=== PATIENT | male | born 1955 | race Caucasian/White ===

== ENCOUNTER 2018-07-21 10:15 | Outpatient (REF) | payer BC, SELFPAY ==
[2018-07-21 20:53] LABS: Anion Gap 7.9 mmol/L (3-11); BUN 20 mg/dL (7-18); CO2 29.1 mmol/L (21.0-32.0); CREATININE 0.85 mg/dL (0.70-1.30); Calcium 8.8 mg/dL (8.5-10.1); Calculated LDL 123; Chloride 103 mmol/L (98-107); Cholesterol 197 mg/dL (50-200); Glucose 94 mg/dL (70-100); HDL Cholesterol 64 mg/dL (40-60); Potassium 4.6 mmol/L (3.5-5.1); Sodium 140 mmol/L (136-145); Triglyceride 54 mg/dL (30-150)
[2018-07-25 09:36] LABS: PSA, Screening 4.5 ng/ml (0-4.5)
== END 2018-07-21 10:35 ==
LOC: NCHCN 10:15
PROVIDERS: PCP Internal Medicine; Visit Provider Internal Medicine
DX: Z13.220 Encounter for screening for lipoid disorders (principal); Z13.1 Encounter for screening for diabetes mellitus; Z12.5 Encounter for screening for malignant neoplasm of prostate
CPT/HCPCS: 80048; 80061; 83721; 84153

== ENCOUNTER 2019-03-30 16:42 | Outpatient (REF) | payer BC, SELFPAY ==
[2019-03-30 21:09] LABS: Abs Immature Grans 0.02 k/cumm (0.0-0.09); Absolute Basophil Count 0.02 k/cumm (0.0-0.2); Absolute Eosinophil Count 0.22 k/cumm (0.0-0.7); Absolute Lymphocyte Count 2.34 k/cumm (1.2-3.4); Absolute Monocyte Count 0.51 k/cumm (0.11-0.7); Absolute Neutrophil Count 3.16 k/cumm (1.2-6.7); Basophils % 0.3; Eosinophils % 3.5; HCT 45.4 % (40.0-50.0); Immature Grans % 0.3 %; Lymphocytes % 37.3; Mean Corpuscular Hemoglobin 30.1 pg (27.0-33.0); Mean Corpuscular Volume 91.2 fL (80-95); Mean Platelet Volume 10.8 fL (8.0-11.0); Monocytes % 8.1; Neutrophils % 50.5; Platelet Count 207 x1000/uL (130-400); RBC 4.98 m/cumm (4.50-6.00); White Blood Cell Count 6.27 k/cumm (4.4-10.8)
[2019-03-30 21:36] LABS: ALT 33 U/L (16-63); AST 19 U/L (15-37); Albumin 3.9 g/dL (3.4-5.0); Alkaline Phosphatase 96 U/L (46-116); Anion Gap 6.7 mmol/L (3-11); BUN 20 mg/dL (7-18); Bilirubin, Total 0.5 mg/dL (0.2-1.0); CO2 29.3 mmol/L (21.0-32.0); CREATININE 0.81 mg/dL (0.70-1.30); Calcium 8.7 mg/dL (8.5-10.1); Chloride 104 mmol/L (98-107); Glucose 91 mg/dL (74-106); Potassium 4.3 mmol/L (3.5-5.1); Sodium 140 mmol/L (136-145); TSH 1.18 uIU/mL (0.36-3.74); Total Protein 7.1 g/dL (6.4-8.2)
[2019-03-30 21:48] LABS: C-Reactive Protein 0.11 mg/dL (0.0-0.3)
== END 2019-03-30 17:02 ==
LOC: NCHCN 16:42
PROVIDERS: PCP Internal Medicine; Visit Provider Internal Medicine
DX: R42 Dizziness and giddiness (principal); M79.643 Pain in unspecified hand
CPT/HCPCS: 80053; 84443; 85025; 86140

== ENCOUNTER 2020-03-27 13:21 | Outpatient (REF) | payer BC, SELFPAY ==
[2020-03-27 13:36] LABS: Abs Immature Grans 0.02 10^3/uL (0.0-0.06); Absolute Basophil Count 0.03 10^3/uL (0.0-0.2); Absolute Eosinophil Count 0.14 10^3/uL (0.0-0.7); Absolute Monocyte Count 0.49 10^3/uL (0.1-0.8); Absolute Neutrophil Count 3.67 10^3/uL (1.2-6.7); Basophils % 0.5; Eosinophils % 2.4; HCT 49.8 % (40.0-50.0); HGB 16.1 g/dL (13.5-17.5); Immature Grans % 0.3; Lymphocytes % 26.9; MCH 30.1 pg (27.0-33.0); MCHC 32.3 % (32.0-36.0); MCV 93.3 fL (80-95); MPV 10.6 fL (8.0-11.0); Monocytes % 8.2; Neutrophils % 61.7; Nucleated RBC 0 %; Platelet Count 222 10^3/uL (130-400); RBC 5.34 10^6/uL (4.36-5.78); RDW 12.4 % (11.8-14.1); RDW-SD 42.8 fL; WBC 5.95 10^3/uL (4.4-10.8)
[2020-03-27 14:30] LABS: BUN 16 mg/dL (7-18); CREATININE 0.6 mg/dL (0.70-1.30); Calcium 8.8 mg/dL (8.5-10.1); Calculated LDL 120 mg/dL (<100); Chloride 103 mmol/L (98-107); Cholesterol 193 mg/dL (<200); Glucose 98 mg/dL (74-106); HDL Cholesterol 58 mg/dL (40-60); Potassium 4.7 mmol/L (3.5-5.1); Sodium 139 mmol/L (136-145); TSH 0.96 uIU/mL (0.36-3.74); Triglyceride 76 mg/dL (<150)
== END 2020-03-27 13:22 | disposition home or self-care (01) ==
LOC: NCHCN 13:21
PROVIDERS: PCP Internal Medicine; Visit Provider Internal Medicine
DX: I10 Essential (primary) hypertension (principal); R68.89 Other general symptoms and signs; Z13.220 Encounter for screening for lipoid disorders
CPT/HCPCS: 80048; 80061; 84443; 85025

== ENCOUNTER 2020-11-16 15:50 | Outpatient (REF) | payer BC, SELFPAY ==
[2020-11-18 10:29] LABS: PSA, Screening 1.8 ng/mL (0.0-4.5)
== END 2020-11-16 15:51 | disposition home or self-care (01) ==
LOC: NCHCN 15:50
PROVIDERS: PCP Internal Medicine; Visit Provider Internal Medicine
DX: Z12.5 Encounter for screening for malignant neoplasm of prostate (principal); J45.30 Mild persistent asthma, uncomplicated; Z78.9 Other specified health status
CPT/HCPCS: 84153

== ENCOUNTER 2021-12-11 16:23 | Outpatient (REF) | payer BC, SELFPAY ==
[2021-12-11 15:23] LABS: Anion Gap 4.4 mmol/L (3-11); BUN 22 mg/dL (7-18); CO2 30.6 mmol/L (21.0-32.0); CREATININE 0.9 mg/dL (0.70-1.30); Calcium 8.6 mg/dL (8.5-10.1); Calculated LDL 110 mg/dL (<100); Chloride 106 mmol/L (98-107); Cholesterol 178 mg/dL (<200); Estimated GFR 95.37 (mL/min/1.73m2); Glucose 102 mg/dL (74-106); HDL Cholesterol 55 mg/dL (40-60); Potassium 4.4 mmol/L (3.5-5.1); Sodium 141 mmol/L (136-145); Triglyceride 66 mg/dL (<150)
[2021-12-11 22:29] LABS: PSA, Screening 3.6 ng/mL (<=4.5)
== END 2021-12-11 16:24 | disposition home or self-care (01) ==
LOC: NCHCN 16:23
PROVIDERS: PCP Internal Medicine; Visit Provider Internal Medicine
DX: E78.5 Hyperlipidemia, unspecified (principal); N40.0 Benign prostatic hyperplasia without lower urinary tract symptoms; R97.20 Elevated prostate specific antigen [PSA]; Z12.5 Encounter for screening for malignant neoplasm of prostate
CPT/HCPCS: 80048; 80061; 84153

== ENCOUNTER 2023-05-24 13:00 | Outpatient (REF) | payer MEDICARE, SELFPAY ==
[2023-05-24 17:03] LABS: MRSA PCR Negative (Negative)
== END 2023-05-24 13:01 | disposition home or self-care (01) ==
LOC: NCHCN 13:00
PROVIDERS: PCP Internal Medicine; Visit Provider Internal Medicine
DX: Z11.2 Encounter for screening for other bacterial diseases (principal); Z01.818 Encounter for other preprocedural examination
CPT/HCPCS: 87641

== ENCOUNTER 2023-11-23 08:36 | Outpatient (REF) | payer MEDICARE, SELFPAY ==
[2023-11-23 15:28] LABS: Anion Gap 5.7 mmol/L (3-11); BUN 20 mg/dL (7-18); CO2 30.3 mmol/L (21.0-32.0); Calcium 8.8 mg/dL (8.5-10.1); Calculated LDL 122 mg/dL (<100); Chloride 109 mmol/L (98-107); Cholesterol 207 mg/dL (<200); Estimated GFR 83.01 (mL/min/1.73m2); Glucose 100 mg/dL (74-106); HDL Cholesterol 70 mg/dL (40-60); Potassium 4.3 mmol/L (3.5-5.1); Sodium 145 mmol/L (136-145); Triglyceride 77 mg/dL (<150)
== END 2023-11-23 08:37 | disposition home or self-care (01) ==
LOC: NCHCN 08:36
PROVIDERS: PCP Internal Medicine; Visit Provider Internal Medicine
DX: E78.5 Hyperlipidemia, unspecified (principal)
CPT/HCPCS: 80048; 80061

== ENCOUNTER 2024-06-09 15:39 | Outpatient (REF) | payer MEDICARE, SELFPAY ==
[2024-06-09 16:33] LABS: HCT 51.6 % (40.0-50.0); HGB 16.2 g/dL (13.5-17.5); MCH 30.1 pg (27.0-33.0); MCHC 31.4 % (32.0-36.0); MCV 96 fL (80-95); MPV 10.6 fL (8.0-11.0); Platelet Count 211 10^3/uL (130-400); RBC 5.39 10^6/uL (4.36-5.78); RDW 12.8 % (11.8-14.1); RDW-SD 45.9 fL; WBC 4.15 10^3/uL (4.4-10.8)
[2024-06-09 16:43] LABS: Calculated LDL 126 mg/dL (<100); Cholesterol 206 mg/dL (<200); HDL Cholesterol 71 mg/dL (>or=40); Triglyceride 45 mg/dL (<150)
[2024-06-12 11:33] LABS: PSA, Screening 1.1 ng/mL (<=4.5)
== END 2024-06-09 15:40 | disposition home or self-care (01) ==
LOC: NCHCN 15:39
PROVIDERS: PCP Internal Medicine; Visit Provider Internal Medicine
DX: E78.5 Hyperlipidemia, unspecified (principal); N40.0 Benign prostatic hyperplasia without lower urinary tract symptoms
CPT/HCPCS: 80061; 84153; 85027

== ENCOUNTER 2024-12-07 09:18 | Outpatient (REF) | payer MEDICARE, SELFPAY ==
[2024-12-07 15:45] LABS: Abs Immature Grans 0.01 10^3/uL (0.0-0.06); HCT 46.8 % (40.0-50.0); HGB 15.0 g/dL (13.5-17.5); Immature Grans % 0.3 %; MCH 30.1 pg (27.0-33.0); MCHC 32.1 % (32.0-36.0); MCV 94 fL (80-95); MPV 10.9 fL (8.0-11.0); Platelet Count 203 10^3/uL (130-400); RBC 4.99 10^6/uL (4.36-5.78); RDW 12.7 % (11.8-14.1); RDW-SD 43.9 fL; WBC 3.85 10^3/uL (4.4-10.8)
[2024-12-07 16:40] LABS: ALT 28 U/L (16-63); AST 18 U/L (15-37); Albumin 3.7 g/dL (3.4-5.0); Alkaline Phosphatase 83 U/L (46-116); Anion Gap 6.9 mmol/L (3-11); BUN 26 mg/dL (7-18); Bilirubin, Total 0.6 mg/dL (0.2-1.0); CO2 27.1 mmol/L (21.0-32.0); Calcium 8.6 mg/dL (8.5-10.1); Calculated LDL 127 mg/dL (<100); Chloride 105 mmol/L (98-107); Cholesterol 198 mg/dL (<200); Estimated GFR 93.61 (mL/min/1.73m2); Folate 17.5 ng/mL (8.6-20.0); Glucose 101 mg/dL (74-106); HDL Cholesterol 62 mg/dL (>or=40); Potassium 4.4 mmol/L (3.5-5.1); Sodium 139 mmol/L (136-145); Total Protein 7.2 g/dL (6.4-8.2); Triglyceride 47 mg/dL (<150); Vitamin B12 251 pg/mL (193-986)
== END 2024-12-07 09:19 | disposition home or self-care (01) ==
LOC: NCHCN 09:18
PROVIDERS: PCP Internal Medicine; Visit Provider Internal Medicine
DX: D72.819 Decreased white blood cell count, unspecified (principal); E78.2 Mixed hyperlipidemia
CPT/HCPCS: 80053; 80061; 82607; 82746; 85025